=== PATIENT | female | born 1960 | race Caucasian/White ===

== ENCOUNTER → 2018-02-27 | Day surgery (SDC) | payer BC ==
[~2018-02-27] MED LIST: Iopamidol-M 200 41% 20 ML VIAL ONE
--- NOTE | 2018-02-27 09:48 | RAD ---
LUMBAR MYELOGRAM: Date: 02/27/18 HISTORY: Lumbar radiculopathy. Previous lumbar fusion. EXPOSURE: 0.5 minutes. 1290.4 mGy*cm^2. FINDINGS: Lumbar spine cloth dyer radiograph 2 views: There is fusion of the left SI joint. There are bilateral transpedicular screws at L3, L4, and L5. No perihardware lucency. Disc prosthesis at L4-L5. Vertebral body height is maintained. No fracture. De generative changes at the distal thoracic spine are noted with osteophyte formation. Successful lumbar puncture for intrathecal contrast administration. A total of 10 mL of Isovue-200M c ontrast was administered intrathecally. No immediate or postprocedure complication. TECHNIQUE: Consent obtained to perform a lumbar puncture. The patient's back was evaluated. The L3-L4 level was deemed appropriate. Skin was prepped and draped in the sterile fashion. 1% lidocaine, buffered with s odium bicarbonate, was used for local anesthesia. Under fluoroscopic guidance, a 22 gauge spinal need le was advanced into the CSF space. Via a short tubing catheter, a total of 10 mL of Isovue-200M cont rast was administered intrathecally. The patient tolerated the procedure well. No immediate or postpr ocedure complications. IMPRESSION: Successful lumbar puncture for intrathecal contrast administration. Please refer to post myelogram CT for further details. POS: [facility]
--- NOTE | 2018-02-27 10:41 | CT ---
POST MYELOGRAM LUMBAR SPINE CT: Date: 02/27/18 HISTORY: Previous lumbar fusion. Lumbar radiculopathy. COMPARISON: None. TECHNIQUE: Lumbar spine CT is performed after myelogram. Images performed from the T11-T12 level to the coccyx. Reformatted images are submitted for interpretation. FINDINGS: No retroperitoneal mass, lymphadenopathy, or hematoma. Visualized solid organs are grossly unremarkab le. Sigmoid colon diverticulosis, without evidence of diverticulitis. Limited evaluation. Colonoscopy is recommended if it has not been performed. Conus medullaris terminates at the L1-L2 level. 3.4 mm of retrolisthesis of L1 upon L2. Bilateral transpedicular screws at L3, L4, and L5. No perihardware lucency. Disc prosthesis at L4-L5. T11-T12: Vacuum disc phenomenon. No high grade central canal stenosis or high grade foraminal narrowing. T12-L1: Mild loss of disc space height. No significant central canal stenosis or foraminal narrowing. L1-L2: No significant posterior disc abnormality. No significant central canal stenosis. Foramina are patent bilaterally. L2-L3: No significant posterior disc abnormality. No significant central canal stenosis. Neural foramina are mildly narrowed bilaterally. L3-L4: No significant posterior disc abnormality. No significant central canal stenosis. Neural foramina are patent bilaterally. L4-L5: Disc prosthesis. No high grade central canal stenosis. Neural foramina are patent bilaterally. L5-S1: Mild loss of disc space height. Vacuum disc phenomenon. No significant central canal stenosis. Mild r ight foraminal narrowing. Left foramen is patent. IMPRESSION: 1. No significant central canal stenosis or significant foraminal narrowing. 2. Lumbar fusion changes as above. POS: [facility]
== END ==
LOC: RAD 07:07
PROVIDERS: ATTEND Nurse Practitioner Family
PROC: B00B1ZZ Plain Radiography of Spinal Cord using Low Osmolar Contrast (ICD-10-PCS; principal; 2018-02-27)
DX: M54.16 Radiculopathy, lumbar region (principal); M46.1 Sacroiliitis, not elsewhere classified; M96.1 Postlaminectomy syndrome, not elsewhere classified; I10 Essential (primary) hypertension; M19.90 Unspecified osteoarthritis, unspecified site; Z98.890 Other specified postprocedural states; Z98.1 Arthrodesis status
CPT/HCPCS: 62304; 72132

== ENCOUNTER 2018-11-05 17:00 | Outpatient (CLI) | payer BC | END 2018-11-05 17:01 | disposition home or self-care (01) | LOC: SLEEPLAB 17:00 | PROVIDERS: ATTEND Family Medicine | DX: G47.33 Obstructive sleep apnea (adult) (pediatric) (principal); R06.83 Snoring | CPT/HCPCS: 95806 ==

== ENCOUNTER 2019-02-20 20:30 | Outpatient (CLI) | payer BC | END 2019-02-20 20:31 | disposition home or self-care (01) | LOC: SLEEPLAB 20:30 | PROVIDERS: ATTEND Family Medicine | DX: G47.33 Obstructive sleep apnea (adult) (pediatric) (principal); R06.83 Snoring; G47.10 Hypersomnia, unspecified; E66.9 Obesity, unspecified; Z68.41 Body mass index [BMI] 40.0-44.9, adult | CPT/HCPCS: 95811 ==

== ENCOUNTER 2021-02-26 10:07 | Outpatient (CLI) | payer BC | END 2021-02-26 10:08 | disposition home or self-care (01) | LOC: BICMAMMO 10:07 | PROVIDERS: ATTEND Family Medicine | DX: Z12.31 Encounter for screening mammogram for malignant neoplasm of breast (principal) | CPT/HCPCS: 77063; 77067 ==

== ENCOUNTER 2022-09-21 09:14 | Outpatient (CLI) | payer BC | END 2022-09-21 09:15 | disposition home or self-care (01) | LOC: BICULT 09:14 | PROVIDERS: ATTEND Family Medicine | DX: R10.11 Right upper quadrant pain (principal); R93.2 Abnormal findings on diagnostic imaging of liver and biliary tract | CPT/HCPCS: 76705 ==

== ENCOUNTER 2022-10-26 12:13 | Outpatient (CLI) | payer BC | END 2022-10-26 12:14 | disposition home or self-care (01) | LOC: BICRAD 12:13 | PROVIDERS: ATTEND Nurse Practitioner Family | DX: M54.42 Lumbago with sciatica, left side (principal); M48.062 Spinal stenosis, lumbar region with neurogenic claudication; Z98.890 Other specified postprocedural states | CPT/HCPCS: 72100; 72202 ==

== ENCOUNTER 2022-11-29 08:16 | Outpatient (CLI) | payer BC | END 2022-11-29 08:17 | disposition home or self-care (01) | LOC: TBSIIMAG 08:16 | PROVIDERS: ATTEND Anesthesiology Pain Medicine | DX: M47.26 Other spondylosis with radiculopathy, lumbar region (principal); M47.815 Spondylosis without myelopathy or radiculopathy, thoracolumbar region | CPT/HCPCS: 72148 ==

== ENCOUNTER 2024-03-15 09:28 | Day surgery (SDC) | payer BC ==
[2024-03-11 10:58] VITALS: BMI 39.4
[2024-03-15] MEDS ORDERED: Bacitracin Zinc Ointment 30 gm TUBE ONE (10:40)
[2024-03-15] MEDS ORDERED: Bupivacaine PF 0.5% 30 ML VIAL ONE (10:40)
[2024-03-15] MEDS ORDERED: Scopolamine 1 mg/72 hour Patch ONE (11:14)
[2024-03-15] MEDS ORDERED: Sodium Chloride 0.9% 100 ML ONE (11:14)
[2024-03-15] MEDS ORDERED: CEFAZOLIN 2 GM VIAL ONE (11:14)
[2024-03-15] MEDS ORDERED: fentaNYL PF 100 MCG/2 ML SYRINGE ONE ×2 (11:18→11:43)
[2024-03-15] MEDS ORDERED: PROPOFOL 0 ML ONE (11:18)
[2024-03-15] MEDS ORDERED: Lidocaine 1% PF 5 ML VIAL ONE (11:18)
[2024-03-15] MEDS ORDERED: Ondansetron PF 4 MG/2 ML Vial ONE ×2 (11:18→12:46)
[2024-03-15] MEDS ORDERED: Dexamethasone 20 MG/5 ML VIAL ONE ×2 (11:18→12:46)
[2024-03-15] MEDS ORDERED: PROPOFOL 20 ML ONE (11:43)
[2024-03-15] MEDS ORDERED: Midazolam HCl 2 mg/2 ml Vial ONE (11:44)
[2024-03-15] MEDS ORDERED: Ketorolac Tromethamine 30 MG (1 mL) VIAL ONE ×2 (12:46→13:55)
== END 2024-03-15 14:45 | disposition home or self-care (01) ==
LOC: SDC 09:28
PROVIDERS: ATTEND Orthopaedic Surgery Hand Surgery
PROC: 01N50ZZ Release Median Nerve, Open Approach (ICD-10-PCS; principal; 2024-03-15)
DX: G56.01 Carpal tunnel syndrome, right upper limb (principal); M67.40 Ganglion, unspecified site; I10 Essential (primary) hypertension; E11.9 Type 2 diabetes mellitus without complications; Z90.710 Acquired absence of both cervix and uterus; Z88.5 Allergy status to narcotic agent; Z88.8 Allergy status to other drugs, medicaments and biological substances; Z90.49 Acquired absence of other specified parts of digestive tract
CPT/HCPCS: A6223; J0665; J1100; J1885; J2250; J2405; J2704; J3490

== ENCOUNTER 2024-03-25 11:00 | Outpatient (CLI) | payer OTHER | END 2024-03-25 11:01 | disposition home or self-care (01) | LOC: BICRAD 11:00 | PROVIDERS: ATTEND Preventive Medicine Occupational Medicine | DX: Z02.71 Encounter for disability determination (principal); M25.561 Pain in right knee; M54.16 Radiculopathy, lumbar region; M17.11 Unilateral primary osteoarthritis, right knee; Z96.612 Presence of left artificial shoulder joint; Z98.890 Other specified postprocedural states | CPT/HCPCS: 72100 ==

== ENCOUNTER 2024-09-10 13:06 | Outpatient (CLI) | payer MEDICARE, BC | END 2024-09-10 13:07 | disposition home or self-care (01) | LOC: BICMAMMO 13:06 | PROVIDERS: ATTEND Family Medicine | DX: Z12.31 Encounter for screening mammogram for malignant neoplasm of breast (principal) | CPT/HCPCS: 77063; 77067 ==

== ENCOUNTER 2025-04-09 09:55 | Outpatient (CLI) | payer MEDICARE | END 2025-04-09 09:56 | disposition home or self-care (01) | LOC: SCSRAD 09:55 | PROVIDERS: ATTEND Family Medicine | DX: R06.09 Other forms of dyspnea (principal) | CPT/HCPCS: 36415; 71046; 80053; 82607; 82746; 83036; 83880; 84443; 85025 ==